=== PATIENT | female | born 1985 | race Caucasian/White ===

== ENCOUNTER 2022-02-26 14:35 | Emergency (ER) | payer MEDICAID ==
[~2022-02-26] VITALS: Ht 157 cm; Wt 75.0 kg
[2022-02-26] MEDS ORDERED: NS IV 1000 ML 1,000 ML IV STA (16:37)
[2022-02-26] MEDS ORDERED: KETOROLAC 30 MG/ML VIAL IV ONE (16:45)
[2022-02-26] MEDS ORDERED: diphenhydrAMINE 50 MG/ML INJ (BENADRYL) IVP ONE (16:45)
[2022-02-26] MEDS ORDERED: METOCLOPRAMIDE INJ 10 MG/2 ML (REGLAN) IVP ONE (16:45)
--- NOTE | 2022-02-26 16:45 | ED Headache ---
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 HAS BEEN IN THE HEAT A LOT. 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 She states that she has to come to the emergency room every so often because her pain goes from a 9 out of 10 to a 10 out of 10. She does see a neurologist in [facility] but they do not treat her with pain medications. She states that her tumor is nonoperable. She denies any new symptoms Timing/Duration: other (Chronic) Severity/Quality: severe (CHARLINE HALL) Allergies and Home Medications Allergies Coded Allergies: hydrocodone (Verified Allergy, Intermediate, 02/26/22) Uncoded Allergies: CONTRAST (Allergy, Severe, 02/26/22) PAPER TAPE (Allergy, Mild, 02/26/22) Patient Home Medication List Home Medication List Reviewed: Yes (CHARLINE HALL) Review of Systems Review of Systems Constitutional: no symptoms reported Eyes: No Symptoms Reported Ears, Nose, Mouth, Throat: no symptoms reported Respiratory: no symptoms reported Cardiovascular: no symptoms reported Gastrointestinal: no symptoms reported Musculoskeletal: no symptoms reported Skin: no symptoms reported (CHARLINE HALL) Past [id number]-[id number] Hx Patient Social History Tobacco Use?: No Substance use?: Yes Substance type: Marijuana Alcohol Use?: No (CHARLINE HALL) Immunizations Up To Date First/Initial COVID19 Vaccinat: 03/20/21 Second COVID19 Vaccination Solomon: 04/17/21 COVID19 Vaccine Business Services Administrator: MODERNA (CHARLINE HALL) Past Medical History Surgery/Hospitalization HX: TUMOR IN HEAD- 2TWO SURGERIES, PARTIAL HYSTERECTOMY, TONSILS, HYPERTENSION (CHARLINE HALL) Physical Exam Vital Signs Vital Signs - First Documented 02/26/22 02/26/22 15:29 17:43 Temp 36.8 Pulse 67 Resp 18 B/P (MAP) 103/82 (89) Pulse Ox 98 O2 Delivery Room Air (SHONDA PADILLA MD) Vital Signs Capillary Refill : (CHARLINE HALL) Height, Weight, BMI Height: '" Weight: lbs. oz. kg; 30.00 BMI Method: General Appearance: WD/WN, no apparent distress HEENT: PERRL/EOMI, normal ENT inspection, TMs normal, pharynx normal Neck: non-tender, full range of motion, supple Cardiovascular: regular rate, rhythm Respiratory: lungs clear Extremities: normal range of motion, non-tender Psychiatric: alert, oriented x 3 Skin: normal color (CHARLINE HALL) Progress/Results/Core Measures Results/Orders Medications Given in ED Current Medications Medications Dose Ordered Sig/Natacha Route Start Time Stop Time Status Last Admin Dose Admin Diphenhydramine HCl 25 mg ONCE ONCE IVP 02/26/22 16:45 02/26/22 16:46 DC 02/26/22 16:53 25 MG Ketorolac Tromethamine 15 mg ONCE ONCE IV 02/26/22 16:45 02/26/22 16:46 DC 02/26/22 16:53 15 MG Metoclopramide HCl 10 mg ONCE ONCE IVP 02/26/22 16:45 02/26/22 16:46 DC 02/26/22 16:53 10 MG (SHONDA PADILLA MD) Vital Signs/I&O 02/26/22 02/26/22 02/26/22 15:29 16:53 17:43 Temp 36.8 36.8 36.8 Pulse 67 65 Resp 18 18 B/P (MAP) 103/82 (89) 100/60 Pulse Ox 98 O2 Delivery Room Air Room Air (SHONDA PADILLA MD) Blood Pressure Mean: 89 Departure Communication (Admissions) Patient is having exacerbation of her chronic headache. We will treat symptomatically here in the emergency room. I encouraged her to follow-up with her neurologist for more definitive long-term treatment. (CHARLINE HALL) Impression Primary Impression: Chronic headache Disposition: 01 HOME, SELF-CARE Condition: Stable Departure-Patient Inst. Decision time for Depature: 16:54 (CHARLINE HALL) Referrals: NO,LOCAL PHYSICIAN (PCP/Family) Primary Care Physician Patient Instructions: Headache, Adult (DC) Add. Discharge Instructions: Please follow up with your neurologist as we discussed. Return with any severe changes or worsening of symptoms. All discharge instructions reviewed with patient and/or family. Voiced understanding. ATTENDING PHYSICIAN NOTE: I was physically present as attending physician in the emergency department during the care of this patient, but I was not directly involved in the decision making or delivery of care for this patient. (SHONDA PADILLA MD) CHARLINE HALL Feb 26, 2022 16:45 SHONDA PADILLA MD Feb 26, 2022 21:16
[2022-02-26 17:43] VITALS: BP 100/60
== END 2022-02-26 17:43 | disposition home or self-care (01) ==
LOC: ER 14:39
DX: G89.29 Other chronic pain (principal); R51.9 Headache, unspecified; Z86.69 Personal history of other diseases of the nervous system and sense organs; Z88.5 Allergy status to narcotic agent; Z86.011 Personal history of benign neoplasm of the brain; Z98.890 Other specified postprocedural states